=== PATIENT | male | born 1985 | race Asian ===

== ENCOUNTER 2018-05-20 11:11 | Emergency (ER) | payer MEDICAID ==
[~2018-05-20] VITALS: Ht 167.6 cm; Wt 55.0 kg
[~2018-05-20 11:11] MED LIST: DIVA125T31; RISP0.2515
[2018-05-20 11:21] VITALS: BP 140/87
[2018-05-20] MEDS ORDERED: L.E.T SOLUTION TP ONE ×4 (11:30→12:00)
== END 2018-05-20 12:14 | disposition home or self-care (01) ==
LOC: ED 12:03
DX: S01.01XA Laceration without foreign body of scalp, initial encounter (principal); W19.XXXA Unspecified fall, initial encounter; Y93.89 Activity, other specified; Y92.009 Unspecified place in unspecified non-institutional (private) residence as the place of occurrence of the external cause; Y99.8 Other external cause status
CPT/HCPCS: 12001; 99283

== ENCOUNTER 2018-05-29 13:14 | Emergency (ER) | payer MEDICAID ==
[~2018-05-29] VITALS: Ht 165.1 cm; Wt 56.4 kg
[2018-05-29 13:31] VITALS: BP 108/63
== END 2018-05-29 13:58 | disposition home or self-care (01) ==
LOC: ED 13:45
DX: S01.01XD Laceration without foreign body of scalp, subsequent encounter (principal); X58.XXXD Exposure to other specified factors, subsequent encounter
CPT/HCPCS: 99281

== ENCOUNTER 2018-06-15 20:59 | Emergency (ER) | payer MEDICAID ==
[~2018-06-15] VITALS: Ht 162.6 cm; Wt 56.2 kg
[2018-06-15 21:02] VITALS: BP 141/91
--- NOTE | 2018-06-15 21:53 | NUR ---
Pt bib mother for swelling to L side of face today, no sx of trauma and no hx that mother is aware of. Pt is developmentally delayed, walks and makes sounds but does not speak. Pt is at baseline per mother.
== END 2018-06-15 22:21 | disposition home or self-care (01) ==
LOC: ED 21:39
DX: R22.0 Localized swelling, mass and lump, head (principal)
CPT/HCPCS: 99283

== ENCOUNTER 2018-06-16 10:43 | Emergency (ER) | payer MEDICAID ==
[~2018-06-16] VITALS: Ht 165.1 cm; Wt 55.2 kg
[2018-06-16 10:44] VITALS: BP 119/85
[2018-06-16] MEDS ORDERED: KETOROLAC 30 MG/1 ML ONE (11:06)
[2018-06-16] MEDS ORDERED: CLINDAMYCIN 150 MG/ML, 6ML ONE (11:09)
--- NOTE | 2018-06-16 11:15 | NUR ---
MEDICATED PER ORDERS, PT TOLERATED WELL
--- NOTE | 2018-06-16 11:29 | NUR ---
PT IS NONVERBAL, UNSURE IF PAIN MEDICATION HAD WORKED
[2018-06-16] MEDS ORDERED: CLINDAMYCIN 150 MG/ML, 6ML IM ONE (11:30)
[2018-06-16] MEDS ORDERED: KETOROLAC 30 MG/1 ML IM ONE (11:30)
--- NOTE | 2018-06-16 11:39 | NUR ---
Patient/Caregiver given discharge instructions and they have confirmed that they understand the instructions. Patient ambulatory with steady gait.
== END 2018-06-16 11:50 | disposition home or self-care (01) ==
LOC: ED 11:40
DX: H60.11 Cellulitis of right external ear (principal); R59.1 Generalized enlarged lymph nodes; G40.909 Epilepsy, unspecified, not intractable, without status epilepticus
CPT/HCPCS: 96372; 99283; J1885; S0077

== ENCOUNTER 2018-06-18 10:22 | Emergency (ER) | payer MEDICAID ==
[~2018-06-18] VITALS: Ht 165.1 cm; Wt 54.5 kg
[2018-06-18] MEDS: LORazepam 2 MG/ML, 1ML IVPush ONE ×2 (03:35→13:35)
[2018-06-18] MEDS ORDERED: SODIUM CHLORIDE FLUSH 10ML SYR IVF ONE (11:30)
[2018-06-18] MEDS ORDERED: ZIPRASIDONE 20 MG INJ IM ONE ×2 (11:37→12:00)
--- NOTE | 2018-06-18 11:47 | NUR ---
PATIENT WAS UNABLE TO TOLERATE TURNIQUET FOR IV START AND BLOOD DRAW. DR. DORSEY NOTIFIED. LOKESH ORDERED AND GIVEN IM.
[2018-06-18 13:08] LABS: ALBUMIN 3.7 g/dL (3.4-5.0); ANION GAP 6 mmol/L (5-15); CALCIUM 9.3 mg/dL (8.5-10.1); CHLORIDE 103 mmol/L (98-107); CREATININE 0.66 mg/dL (0.7-1.3)
[2018-06-18 13:09] LABS: BASOPHILS # (AUTO) 0.04 x10^3/uL (0-0.1); BASOPHILS % (AUTO) 1 % (0-1); EOSINOPHILS # (AUTO) 0.11 x10^3/uL (0-0.4); EOSINOPHILS % (AUTO) 1 % (1-7); LYMPHOCYTES % (AUTO) 28 % (22-44); MD NO; MEAN CORPUSCULAR HEMOGLOBIN 36.1 pg (27.5-34.5); MEAN CORPUSCULAR HGB CONC 35.8 g/dL (33.2-36.2); MEAN CORPUSCULAR VOLUME 100.6 fL (81-97); MEAN PLATELET VOLUME 8.3 fL (7.4-10.4); MONOCYTES % (AUTO) 9 % (2-9); NEUTROPHILS # (AUTO) 5.68 x10^3/uL (1.8-6.8); NEUTROPHILS % (AUTO) 62 % (42-75); PLATELET COUNT 240 x10^3/uL (130-400); RED CELL DISTRIBUTION WIDTH 12.3 % (9.4-14.8)
[2018-06-18 13:26] LABS: ALANINE AMINOTRANSFERASE 59 U/L (12-78); ALKALINE PHOSPHATASE 94 U/L (45-117); BILIRUBIN,TOTAL 0.5 mg/dL (0.2-1.0); TOTAL PROTEIN 8.9 g/dL (6.4-8.2)
[2018-06-18] MEDS ORDERED: LORazepam 2 MG/ML, 1ML ONE (13:34)
--- NOTE | 2018-06-18 13:41 | NUR ---
PT MEDICATED WITH ATIVAN 1MG IVP.
[2018-06-18] MEDS ORDERED: OMNIPAQUE 350 MG/ML, 75ML BOTTLE ONE (14:16)
--- NOTE | 2018-06-18 16:24 | NUR ---
BREAK RN: PT.'S IV WAS DCD', CATH TIP INTACT. PRESSURE HELD WITH HEMOSTASIS ACHEIVED. PT.'S MOTHER WAS GIVEN DISCHARGE INSTRUCTIONS WITH UNDERSTANDING VERBALIZED ALONG WITH WILLINGNESS TO COMPLY. PT. WAS AMBULATORY TO THE DISCHARGE DESK WITH HIS FAMILY.
[2018-06-18 16:28] VITALS: BP 109/57
== END 2018-06-18 16:30 | disposition home or self-care (01) ==
LOC: ED 11:36
DX: L03.211 Cellulitis of face (principal); G40.909 Epilepsy, unspecified, not intractable, without status epilepticus
CPT/HCPCS: 36415; 70487; 80053; 83605; 85025; 87040; 96372; 96374; 99284; J2060; J3486; Q9967

== ENCOUNTER 2020-09-20 11:18 | Emergency (ER) | payer MEDICAID ==
[~2020-09-20] VITALS: Ht 162.6 cm; Wt 57.4 kg
[~2020-09-20 11:18] MED LIST changes: -DIVA125T31; +DIVA125T31 PO; -RISP0.2515; +RISP0.2515 PO
[2020-09-20 11:34] VITALS: BP 143/75
--- NOTE | 2020-09-20 12:06 | NUR ---
surveillance director: Pt ambulatory to room from lobby at this time.
--- NOTE | 2020-09-20 12:09 | NUR ---
PT TO ROOM FROM [facility] STEADY GAIT. PT'S PARENTS AT BEDSIDE TO EXPLAIN MED HX. PT HAS HAD RED SWOLLEN BUMP ANTERIOR TO R EAR FOR 3 DAYS. PT SEEN AT [facility] YESTER[facility] FOR SAME, PRESCRIBED BACTRIM, PARENTS HAVE NOT YET FILLED RX STATING, "IT HASN'T BEEN DELIVERED YET."
[2020-09-20] MEDS ORDERED: CHOL20008 PO (12:17)
[2020-09-20] MEDS ORDERED: LIDOCAINE-MPF 1%, 5ML INFIL ONE (13:30)
[2020-09-20] MEDS ORDERED: L.E.T SOLUTION TP ONE ×2 (13:30→13:41)
[2020-09-20] MEDS ORDERED: LIDOCAINE-MPF 1%, 5ML ONE (13:42)
--- NOTE | 2020-09-20 13:45 | NUR ---
LET ON AT THIS TIME.
--- NOTE | 2020-09-20 14:21 | NUR ---
ILEANA RODRÍGUEZ AT BEDSIDE.
[2020-09-20] MEDS ORDERED: CEPHALEXIN 500 MG CAPSULE PO ONE (14:30)
[2020-09-20] MEDS ORDERED: SULFAMETH./TRIMETHOPRIM DS 800MG/160MG TABLET PO ONE (14:30)
[2020-09-20] MEDS ORDERED: CEPHALEXIN 500 MG CAPSULE ONE (14:35)
[2020-09-20] MEDS ORDERED: SULFAMETH./TRIMETHOPRIM DS 800MG/160MG TABLET ONE (14:35)
--- NOTE | 2020-09-20 15:15 | NUR ---
DC INSTRUCTIONS REVIEWED
== END 2020-09-20 15:18 | disposition home or self-care (01) ==
LOC: ED 14:48
DX: L02.01 Cutaneous abscess of face (principal); G40.909 Epilepsy, unspecified, not intractable, without status epilepticus
CPT/HCPCS: 10060; 99284

== ENCOUNTER 2020-09-28 10:52 | Emergency (ER) | payer MEDICAID ==
[~2020-09-28 10:52] MED LIST changes: +CHOL20008 PO
[2020-09-28 11:05] VITALS: BP 119/65
--- NOTE | 2020-09-28 12:08 | NUR ---
INSURANCE ADJUSTER: PT TO ROOM FROM [facility]ARS[facility]
[2020-09-28] MEDS ORDERED: LIDOCAINE-MPF 1%, 5ML INFIL ONE (12:30)
[2020-09-28] MEDS ORDERED: LIDOCAINE-MPF 1%, 5ML ONE (12:44)
== END 2020-09-28 13:07 | disposition home or self-care (01) ==
LOC: ED 12:30
DX: L02.01 Cutaneous abscess of face (principal)
CPT/HCPCS: 10060

== ENCOUNTER 2020-09-30 15:31 | Inpatient (IN) | payer MEDICAID ==
[~2020-09-30] VITALS: Ht 162.6 cm; Wt 62.4 kg
[2020-09-30] MEDS ORDERED: SODIUM CHLORIDE FLUSH 10ML SYR IVF ONE (16:30)
[2020-09-30] MEDS ORDERED: LORazepam 2 MG/ML, 1ML ONE (16:32)
--- NOTE | 2020-09-30 16:35 | NUR ---
CONTACTED CT TO ADVISE WHEN THEY WOULD BE ON THE WAY TO [facility]
[2020-09-30 16:44] LABS: ALANINE AMINOTRANSFERASE 28 U/L (12-78); ALBUMIN 3.7 g/dL (3.4-5.0); ANION GAP 8 mmol/L (5-15); CALCIUM 8.4 mg/dL (8.5-10.1); CHLORIDE 98 mmol/L (98-107); CREATININE 0.86 mg/dL (0.7-1.3)
[2020-09-30 16:46] LABS: ALKALINE PHOSPHATASE 61 U/L (45-117); BILIRUBIN,TOTAL 0.3 mg/dL (0.2-1.0); MEAN CORPUSCULAR HEMOGLOBIN 34.2 pg (27.5-34.5); MEAN PLATELET VOLUME 7.5 fL (7.4-10.4); PLATELET COUNT 195 x10^3/uL (130-400); RED BLOOD COUNT 4.19 x10^6/uL (4.38-5.82); RED CELL DISTRIBUTION WIDTH 12.7 % (9.4-14.8); TOTAL PROTEIN 8.2 g/dL (6.4-8.2)
[2020-09-30 16:49] LABS: BASOPHILS % (AUTO) 0 % (0-1); EOSINOPHILS % (AUTO) 0 % (1-7); LYMPHOCYTES % (AUTO) 38 % (22-44); MONOCYTES % (AUTO) 15 % (2-9); NEUTROPHILS % (AUTO) 47 % (42-75)
[2020-09-30] MEDS ORDERED: OMNIPAQUE 350 MG/ML, 75ML BOTTLE ONE (17:15)
[2020-09-30] MEDS ORDERED: LORazepam 2 MG/ML, 1ML IVPush ONE ×2 (17:30)
[2020-09-30] MEDS ORDERED: VANCOMYCIN 1,400 MG in SODIUM CHLORIDE 0.9% 250 ML IV ONE (18:00)
[2020-09-30] MEDS ORDERED: VANCOMYCIN PER PHARMACY MC PRN (18:00)
[2020-09-30] MEDS ORDERED: AMPICILLIN/SULBACTAM 3 GM in SODIUM CHLORIDE 0.9% 100 ML IV ONE (18:00)
[2020-09-30] MEDS ORDERED: SODIUM CHLORIDE 0.9% 1,000ML IVBOLUS ONE (18:30)
--- NOTE | 2020-09-30 19:32 | NUR ---
RECEIVED REPORT FROM DRU HOROWITZ. PT AMBULATED TO BATHROOM WITH FAMILY WITH STEADY GAIT. PT NANDO IN BED. LAZ.
[2020-09-30 20:42] VITALS: BP 122/72
--- NOTE | 2020-09-30 20:44 | NUR ---
PT TRANSFERED TO FLOOR PT CONDITION UNCHANGED. NO ACUTE CHANGES NOTED. FAMILY WENT UP WITH PT
[2020-09-30] MEDS: ACETAMINOPHEN 325 MG TABLET PO PRN (22:09)
[2020-10-01] MEDS ORDERED: VANCOMYCIN PER PHARMACY MC PRN
[2020-10-01] MEDS: AMPICILLIN/SULBACTAM 3 GM in SODIUM CHLORIDE 0.9% 100 ML IV SCH ×4 (00:12→18:05)
[2020-10-01] MEDS ORDERED: PHARMACOKINETIC MONITORING MC PRN (00:30)
[2020-10-01] MEDS ORDERED: PHARMACOKINETIC CONSULTATION MC ONE (00:30)
[2020-10-01 00:34] VITALS: BP 106/73
[2020-10-01 06:22] LABS: ANION GAP 7 mmol/L (5-15); CALCIUM 8.5 mg/dL (8.5-10.1); CREATININE 0.91 mg/dL (0.7-1.3)
[2020-10-01 06:27] LABS: BASOPHILS % (AUTO) 1 % (0-1); EOSINOPHILS % (AUTO) 0 % (1-7); LYMPHOCYTES % (AUTO) 25 % (22-44); MEAN CORPUSCULAR HEMOGLOBIN 33.1 pg (27.5-34.5); MEAN CORPUSCULAR HGB CONC 33.7 g/dL (33.2-36.2); MEAN PLATELET VOLUME 7.3 fL (7.4-10.4); MONOCYTES % (AUTO) 9 % (2-9); NEUTROPHILS % (AUTO) 65 % (42-75); PLATELET COUNT 184 x10^3/uL (130-400); RED BLOOD COUNT 4.64 x10^6/uL (4.38-5.82); RED CELL DISTRIBUTION WIDTH 12.8 % (9.4-14.8)
[2020-10-01 06:37] LABS: CHLORIDE 105 mmol/L (98-107)
[2020-10-01 07:33] VITALS: BP 147/91
[2020-10-01] MEDS: RISPERIDONE 0.5 MG TABLET PO SCH ×2 (07:47→20:17)
[2020-10-01] MEDS: DIVALPROEX 125 MG TABLET.DR PO SCH ×2 (07:48→20:16)
[2020-10-01] MEDS: VANCOMYCIN 1,200 MG in SODIUM CHLORIDE 0.9% 250 ML IV SCH ×3 (07:52→21:21)
[2020-10-01] MEDS ORDERED: LORazepam 0.5MG TABLET PO ONE (08:00)
[2020-10-01] MEDS: ACETAMINOPHEN 325 MG TABLET PO PRN ×2 (09:32→17:42)
[2020-10-01] MEDS ORDERED: SODIUM CHLORIDE 0.9% 1,000ML IVBOLUS ONE ×2 (10:30→20:30)
[2020-10-01 10:58] LABS: MICROSCOPIC NOT IND
[2020-10-01 12:08] VITALS: BP 104/68
[2020-10-01] MEDS ORDERED: KETOROLAC 15 MG/1ML IVPush SCH (15:00)
[2020-10-01] MEDS: KETOROLAC 30 MG/1 ML IVPush SCH ×2 (16:22→21:21)
[2020-10-01 16:44] LABS: C-REACTIVE PROTEIN, QUANT 1.9 mg/dL (0.02-0.49)
[2020-10-01] MEDS: ENOXAPARIN 40 MG/0.4 ML SQ SCH (17:46)
[2020-10-01 20:08] VITALS: BP 84/50
[2020-10-02 00:13] VITALS: BP 100/68
[2020-10-02] MEDS: AMPICILLIN/SULBACTAM 3 GM in SODIUM CHLORIDE 0.9% 100 ML IV SCH ×4 (00:20→18:18)
[2020-10-02] MEDS: KETOROLAC 30 MG/1 ML IVPush SCH ×3 (03:13→15:47)
[2020-10-02] MEDS: LACTATED RINGERS 1,000 ML IV SCH (07:06)
[2020-10-02 08:56] VITALS: BP 97/69
[2020-10-02] MEDS: DIVALPROEX 125 MG TABLET.DR PO SCH ×2 (09:02→20:29)
[2020-10-02] MEDS: RISPERIDONE 0.5 MG TABLET PO SCH ×2 (09:03→20:29)
[2020-10-02] MEDS: VANCOMYCIN 1,200 MG in SODIUM CHLORIDE 0.9% 250 ML IV SCH (09:20)
[2020-10-02 09:42] LABS: ANION GAP 5 mmol/L (5-15); CALCIUM 7.5 mg/dL (8.5-10.1); CHLORIDE 113 mmol/L (98-107)
[2020-10-02 10:05] LABS: BASOPHILS % (AUTO) 1 % (0-1); EOSINOPHILS % (AUTO) 0 % (1-7); LYMPHOCYTES % (AUTO) 37 % (22-44); MEAN CORPUSCULAR HEMOGLOBIN 33.4 pg (27.5-34.5); MEAN PLATELET VOLUME 7.8 fL (7.4-10.4); MONOCYTES % (AUTO) 8 % (2-9); NEUTROPHILS % (AUTO) 54 % (42-75); PLATELET COUNT 142 x10^3/uL (130-400); RED BLOOD COUNT 4.09 x10^6/uL (4.38-5.82); RED CELL DISTRIBUTION WIDTH 12.4 % (9.4-14.8)
[2020-10-02 13:06] VITALS: BP 117/83
[2020-10-02] MEDS: ENOXAPARIN 40 MG/0.4 ML SQ SCH (17:00)
[2020-10-02] MEDS: LORazepam 0.5MG TABLET PO PRN (17:45)
[2020-10-02] MEDS ORDERED: KETOROLAC 30 MG/1 ML IVPush PRN (18:00)
[2020-10-02] MEDS: VANCOMYCIN 1,300 MG in SODIUM CHLORIDE 0.9% 250 ML IV SCH (20:29)
[2020-10-02 20:37] VITALS: BP 118/82
[2020-10-03] MEDS: AMPICILLIN/SULBACTAM 3 GM in SODIUM CHLORIDE 0.9% 100 ML IV SCH ×3 (00:18→16:42)
[2020-10-03] MEDS: LACTATED RINGERS 1,000 ML IV SCH ×2 (00:18→13:20)
[2020-10-03 03:51] VITALS: BP 109/70
[2020-10-03 06:43] VITALS: BP 102/73
[2020-10-03] MEDS: DIVALPROEX 125 MG TABLET.DR PO SCH ×2 (08:42→20:19)
[2020-10-03] MEDS: RISPERIDONE 0.5 MG TABLET PO SCH ×2 (08:42→20:20)
[2020-10-03] MEDS: VANCOMYCIN 1,300 MG in SODIUM CHLORIDE 0.9% 250 ML IV SCH ×2 (09:45→22:04)
[2020-10-03 12:41] VITALS: BP 100/66
[2020-10-03] MEDS: ENOXAPARIN 40 MG/0.4 ML SQ SCH (16:42)
[2020-10-03 19:39] VITALS: BP 120/85
[2020-10-04] MEDS: VANCOMYCIN 1,300 MG in SODIUM CHLORIDE 0.9% 250 ML IV SCH ×2 (01:00→13:00)
[2020-10-04] MEDS: LORazepam 0.5MG TABLET PO PRN ×2 (01:49→11:44)
[2020-10-04] MEDS: AMPICILLIN/SULBACTAM 3 GM in SODIUM CHLORIDE 0.9% 100 ML IV SCH ×2 (05:04→11:00)
[2020-10-04] MEDS ORDERED: AMOX1TAB61 PO (07:03)
[2020-10-04] MEDS: DIVALPROEX 125 MG TABLET.DR PO SCH (09:23)
[2020-10-04] MEDS: RISPERIDONE 0.5 MG TABLET PO SCH (09:23)
[2020-10-04 09:26] VITALS: BP 116/59
== END 2020-10-04 14:58 | disposition home or self-care (01) | DRG 720 ==
LOC: ED 15:57 → EDIP 18:15 → 3N 20:35
PROVIDERS: ADMIT Family Medicine; ATTEND Internal Medicine
DX: A41.9 Sepsis, unspecified organism (principal); J18.9 Pneumonia, unspecified organism; Z20.822 Contact with and (suspected) exposure to COVID-19; E87.1 Hypo-osmolality and hyponatremia; F84.0 Autistic disorder; G40.909 Epilepsy, unspecified, not intractable, without status epilepticus; L03.211 Cellulitis of face; Z79.899 Other long term (current) drug therapy
CPT/HCPCS: 10060; 36415; 70487; 71045; 80048; 80053; 80202; 81003; 82533; 83605; 83615; 83690; 84145; 85025; 85379; 86140; 87040; 96374; 99282; 99285; G0378; J0295; J1650; J1885; J3370; Q9967; U0005; J2060; J7030; J7050; J7120; U0003